=== PATIENT | male | born 1985 | race Caucasian/White ===

== ENCOUNTER → 2023-04-19 07:44 | Outpatient (CLI) | payer OTHER, SELFPAY ==
--- NOTE | ~2023-04-19 | US_ITS ---
EXAMINATION: US abdomen complete DATE: 04/19/2023 08:15 INDICATION: Liver disease TECHNIQUE: Multiple grayscale and Doppler ultrasound images of the abdomen were obtained. COMPARISON: None available FINDINGS: Bowel gas obscures visualization of the pancreas. The visualized portions of the pancreas a re unremarkable. The liver demonstrates increased echogenicity, heterogenous echotexture, and decreas ed through transmission. There are areas of focal fatty sparing near the gallbladder fossa. No surfac e nodularity. Normal hepatopetal flow in the main portal vein. The gallbladder is normal with no abno rmal wall thickening, pericholecystic fluid or stones. The normal common bile duct measures 6 mm. The re was no sonographic Perez sign. The visualized portions of the aorta and inferior vena cava are no rmal. The spleen is normal in appearance and measures 12.6 cm. The right kidney measures 12.2 x 5.2 x 5.1 c m. The left kidney measures 12.1 x 4.4 x 5.3 cm. The kidneys demonstrate normal parenchymal echogenic ity. There is no hydronephrosis. IMPRESSION: 1. Diffuse hepatic steatosis. Reviewed, dictated and finalized at location L. MATIC PAINT SPRAYER OPERATOR
== END ==
PROVIDERS: PCP Emergency Medicine; Visit Provider Emergency Medicine
DX: K76.9 Liver disease, unspecified (principal); K76.0 Fatty (change of) liver, not elsewhere classified
CPT/HCPCS: 76700

== ENCOUNTER 2024-12-25 18:29 | Emergency (ER) | payer OTHER, SELFPAY ==
--- OUTSIDE RECORDS SUMMARY | 2023-06-12 16:26 | XMS_ITS | Continuity of Care Document ---
Author Organization [facility] Address [address] [facility] [place] [address] Phone Care Team Providers Care Customs Examiner Name Role Phone Sammy Bernal MD Unavailable Unavailable Allergies, Adverse Reactions, Alerts Substance Reaction Status Criticality No Known Allergies Active No Inform ation Medications Medication Instructions Dosage Effective Dates (start - stop) Status Comments Crestor 10 mg tablet take 1 tablet by or al route every day 10 MG - Active allopurinol 100 mg tablet take 1 tablet by oral route every day 100 MG - Active Procedures Procedure Date OFFICE/OUTPATIENT VISIT, EST OFFICE/OUTPATIENT VISIT, EST PREV VISIT, EST, AGE 18-39 PREV VISIT, EST, AGE 18-39 PREV VISIT, NEW, AGE 18-39 Advance Directives Directive Yes / No Effective Date File Name No Information Encounters Encounter Description Practice Location Reason(s) For Visit Diagnoses Date Provider Providers Copied on Encounter [facility], [address] [facility] [place], [place], [id number], tel:[phone] [facility] No Information Gabe Christianson. [address] [employer] [facility] [place], [id number] , [place]. tel:[phone] OFFICE/OUTPA TIENT VISIT, EST [facility], [address] [place], [id number], tel:[phone] [facility] Medicine fatty liver1 (chief complaint) platelet1 (chief complaint) HLP (chief complaint) gout1 (chief complaint) Fatty liverThrombocytopen iaMixed hyperlipidemiaGout 0- 3 Gabe Christianson. [address], [place], [place], [id number] , [place]. tel:[phone] OFFICE/OUTPA TIENT VISIT, EST [facility], [address], [place], [place], [id number], [place] tel:[phone] [facility] gout1 (chief complaint) platelet1 (chief complaint) liver1 (chief complaint) HLP (chief complaint) GoutThrombocytopeni aLiver diseaseMixed hyperlipidemia Feb- 3 Gabe Christianson. [address], [place], [place], [address] , [place]. tel:[phone] PREV VISIT, EST, AGE 18-39 [facility], [address], [place], [place], [id number], [place] tel:[phone] [facility] Medicine physical (chief complaint) Encounter for general adult medical examination without abnormal findings 3 Gabe Christianson. [address], [place], [place], [address] , [place]. [phone] PREV VISIT, EST, AGE 18-39 [facility], [address], [place], [place], [address], [place] tel:[phone] [facility] Medicine physical (chief complaint) Encounter for general adult medical examination without abnormal findings 2 Gabe Christianson. [address], [place], [place], [address] , [place]. tel:[phone] PREV VISIT, NEW, AGE 18-39 [facility], [address], [place], [place], [address], [place] tel:[phone] [facility] Medicine physical (chief complaint) Encntr for general adult medical exam w/o abnormal findings 0 Gabe Christianson. [address], [place], [place], [address] , [place]. tel:[phone] Family History Family Member Type Diagnosis Age At Onset Mother Problem (finding) Alive and well Sister Problem (finding) Alive and well Father Problem (finding) unknown Payers Payer name Insurance type Covered libertarian ID Authoriza tion(s) No Information Social History Type Description Quantity Date Captured Comments Alcohol Use Details Unknown Caffeine Use Details Unknown Tobacco Use Status No Information Smoking Status No Information Sex Male Chief Complaint And Reason For Visit No Information Plan Of Treatment Date Type Action Status Referral Ordered: Melly Bolanos -[facility] : Internal Medicine (related to Fatty liver) ordered Referral Referred To: Melly Bolanos [address], [phone] Ordered: Referrals: [facility] Physicians : Internal Medicine. Melly Bolanos. Evaluate and treat ordered Referral Ordered: US EXAM, ABDOM, COMPLETE ordered History Of Present Illness Encounter Date Complaint History Of Prese nt Illness fatty liver1 Pt has diffuse f atty liver. Pt denies any abdominal pain or jaundice. pt does drink alcohol more than socially platelet1 Pt has borderlin e low platelet .pt denies any bruising or bleeding HLP Pt has HLP Pt ta osman viera. Pt denies any myalgia or any other side effects gout1 Pt has history o f gout .Pt takes allopurinol. Pt denies any side effects Pt denies any recent gout attack gout1 Pt has high uric acid Pt has not had any gout for several months Pt does feel stiff joint sometimes. platelet1 Pt has low plate let. Pt denies any bruising or bleeding liver1 Pt has mildly hi gh LFT. Pt denies any abd pain or jaundice Pt denies any bruising HLP Pt has HLP Pt mi s failed diet and exercise. Pt does drinks alcohol. physical Pt needs annual physical. Pt c/o recurrent irritation, mild itching and excessive tearing from right eye for 2-3 weeks .Pt denies any eye pain or vision change. Pt denies any purulent pus drainage Pt denies any left eye issue Pt denies any sinus headache or ear pain or any headache. Pt does wear contact Pt denies any FB in right eye or any eye pain. 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 Pt denies any other complaints. Pt has history of gout .Pt has not had any gout attack for several months. physical Pt needs annual physical Pt c/o non itching red spotty rash both hand and then spreading to brown and mainly to groin area since 5 days ago. Pt denies any drainage Pt denies any itching Pt denies any sick contact. Pt denies any pain. Pt otherwise feels well. Pt denies any recurrent gout attack. his bp is borderline high. Pt denies any chest pian or headache .Pt gained some grupo since two years ago. physical Pt needs annual physical pt has recurrent gout attack for 3 years. Pt had total of 3 attacks but last week he had attack which last longer than usual and seems more painful Pt states that attack is always on left foot near dorsal left foot Pt has redness and hot when he has attack. Pt went to urgent care two days ago and was confirmed for gout and was given naproxen which helped Pt currently denies any pain Pt denies any injury Pt denies any other complaints Instructions Date Instruction Additional Infor juan No Information Assessments Type Assessment Date No Information
--- NOTE | ~2024-12-25 | CT_ITS ---
EXAMINATION: CT chest abdomen pelvis w con DATE: 12/25/2024 20:57 CDT INDICATION: Left lower rib pain. Left upper quadrant tenderness. TECHNIQUE: Computed tomography (CT) of the chest, abdomen, and pelvis was performed with 100 cc Omnipaque 350 intravenous contrast. The dose-length product was 826.30 mGy-cm. Automated exposure control and iterative reconstruction technique were employed. COMPARISON: None FINDINGS: CT chest, abdomen and pelvis: Heart size normal. No significant pleural or pericardial effusion. No significant vascular abnormality. There is acute diverticulitis of the descending colon. No evidence for perforation or abscess. Small umbilical hernia containing fat. Right inguinal hernia containing fat. Normal appendix. No thoracic lymphadenopathy. No significant pleural or pericardial effusion. Heart size normal no pneumothorax. No endobronchial lesions. 3 mm right lower lobe nodule, likely benign. No acute osseous abnormality. There is grade 1 spondylolisthesis at L5-S1 secondary to spondylolysis. Fatty infiltration of the liver. The spleen, pancreas, adrenal glands and kidneys are unremarkable. IMPRESSION: 1. Acute uncomplicated diverticulitis of the descending colon. Reviewed, dictated and finalized at location A.
--- OUTSIDE RECORDS SUMMARY | 2024-12-25 18:31 | XMS_ITS | Clinical Summary ---
Author Organization [facility] Address [address] [place] [address] Care Team Providers Care Home Health Nurse Licensed Practical Name Role Phone Unavailable Primary Care Provider Unavailabl e Immunizations Immunization Administration Dates Next Due Covid-19, Mrna, Lnp-s, Pf, 30 Mcg/0.3 Ml Dose (P fizer) 05/29/2021 Social History Tobacco Use Types Packs/Day Years Used Date Smoking Tobacco: Never Assessed Sex and Gender Information Value Date Recorded Sex Assigned at Not on file Legal Sex Male 12:11 PM NIGHT TIME NANNY Gender Identity Not on file Sexual Orientation Not on file Plan of Treatment Health Maintenance Due Date Last Done Comments Hepatitis C Virus (HCV) Screening 1984 TdaP Immunization 1984 Hepatitis B Immunization (1 of 3 - 19+ 3-dose series) 11/03/2003 Human Papillomavirus (HPV) Immunization (1 - 3-dose SCDM series) 11/03/2011 SARS-COV-2 Immunization ( season) 2024 05/29/2021, 10/03/2020, 09/12/2020 Influenza Immunization (#1) 2025 Respiratory Syncytial Virus (RSV) Immunization (Adult) (1 - 1-dose 75+ series) 11/03/2059 DTaP/Tdap/Td Immunization Discontinued 1989, 03/14/1986, 04/20/1985, Additional history exists Meningococcal Immunization (ACWY) Aged Out No longer eligible based on patient's age to complete this topic Pneumococcal Immunization Combined Aged Out No longer eligible based on patient's age to complete this topic Rotavirus Immunization Aged Out No lo nger eligible based on patient's age to complete this topic
--- OUTSIDE RECORDS SUMMARY | 2024-12-25 18:31 | XMS_ITS | Clinical Summary ---
Author Organization [facility] Address [address] [place] [address] Care Team Providers Care Security Supervisor Name Role Phone Unavailable Primary Care Provider Unavailabl e Social History Tobacco Use Types Packs/Day Years Used Date Smoking Tobacco: Never Assessed Sex and Gender Information Value Date Recorded Sex Assigned at Not on file Legal Sex Male 7:59 AM CDT Gender Identity Not on file Sexual Orientation Not on file Last Filed Vital Signs Vital Sign Reading Time Taken Comments Blood Pressure 138/92 04/22/2016 4:54 PM EXCELLENCE SPECIALIST Pulse 100 04/22/2016 3:28 PM EXCELLENCE SPECIALIST Temperature - - Respiratory Rate - - Oxygen Saturation - - Inhaled Oxygen Concentration - - Weight 92.5 kg (204 lb) 04/22/2016 3:28 PM EXCELLENCE SPECIALIST Height 170.2 cm (5' 7) 04/22/2016 3:28 PM EXCELLENCE SPECIALIST Body Mass Index 31.95 04/22/2016 3:28 PM EXCELLENCE SPECIALIST Plan of Treatment Health Maintenance Due Date Last Done Comments Annual Physical 11/03/1987 Hepatitis C 2002 DTaP, Tdap and Td Vaccines ( 1 - Tdap) 11/03/2003 Hepatitis B Vaccines (1 of 3 - 19+ 3-dose series) 11/03/2003 HPV Vaccines (1 - 3-dose SCD M series) 11/03/2011 COVID-19 Vaccine ( - 2023-2 5 season) 2024 Meningococcal B Vaccine Aged Out No l onger eligible based on patient's age to complete this topic Meningococcal Vaccine Aged Out No tobin jayro eligible based on patient's age to complete this topic Pneumococcal Vaccine: Pediat rics (0 to 5 Years) and At-Risk Patients (6 to 49 Years) Aged Out No longer eligible b ased on patient's age to complete this topic RSV Immunizations Under 20 Months Aged Out No longer eligible based on patient's age to complete this topic
[2024-12-25 18:32] VITALS: BP 158/91; PULSE 102; RESP 20; TEMP 36.6; O2SAT 98
--- NOTE | 2024-12-25 19:21 | ED.GENADULT ---
HPI - General Adult General Chief complaint: Back Pain/Injury Stated complaint: left flank pain Time Seen by Provider: 12/25/24 19:11 History of Present Illness HPI narrative: 39-year-old male present to the emergency department for evaluation for left lower rib pain and left upper quadrant abdominal pain. Patient noticed the pain yesterday after treated to. Patient denies any specific incident of injury but started having increasing pain over the few hours after a jujitsu and patient reports pain is worsened with deep inspiration and with movement. Patient is uncomfortable appearing at time of evaluation. Patient declined medications for pain control. Patient does have previous history of gout but states he has had weight loss and has stop taking his allopurinol. Patient does take a statin. Related Data Allergies Allergy/AdvReac Type Severity Reaction Status Date / Time No Known Allergies Allergy Verified 12/25/24 18:34 Review of Systems Review of Systems: All systems reviewed & are unremarkable except as noted in HPI and below Exam Narrative: APPEARANCE: Well appearing, no pain, no distress, well-nourished. HEAD: normocephalic, atraumatic. EYES: PERRLA/EOMI, conjunctivae clear. NOSE: Normal no drainage EARS:TMS clear with good light reflex. THROAT: Pharynx clear, no exudate. NECK: Supple. No adenopathy, no masses. RESPIRATORY: Airway patent, respirations nonlabored. Clear to auscultation bilaterally, no rales, rhonchi, wheezing. CARDIOVASCULAR: Regular rate and rhythm without murmurs rubs or gallops. ABDOMINAL: Left upper quadrant tenderness to palpation, no left CVA tenderness MUSCULOSKELETAL: Left lower rib tenderness to palpation NEURO: Alert. Cranial nerves II through XII intact. Good gait. Good coordination SKIN: Warm, dry. Normal Color Course Vital Signs Vital signs: Vital Signs Temperature 97.8 F 12/25/24 18:32 Pulse Rate 102 H 12/25/24 18:32 Respiratory Rate 20 12/25/24 18:32 Blood Pressure 158/91 H 12/25/24 18:32 Pulse Oximetry 98 12/25/24 18:32 Temperature 97.8 F 12/25/24 21:20 Pulse Rate 78 12/25/24 21:20 Respiratory Rate 18 12/25/24 21:20 Blood Pressure 132/74 12/25/24 21:20 Pulse Oximetry 99 12/25/24 21:20 Medical Decision Making MDM Narrative Medical decision making narrative: 39-year-old male presents emergency department for evaluation for left upper quad abdominal pain. Patient is afebrile but does have a leukocytosis of 11.5 a hemoglobin of 14. Patient has INR 1.0. No acute abnormalities on the patient's CMP with a negative lactic acid. Lipase was negative. CT with contrast was ordered to evaluate for splenic injury 1st as lung injury. No evidence of splenic injury no evidence of rib fractures or pulmonary contusion, CT was positive for uncomplicated diverticulitis of the descending colon. This does correlate with the patient's symptoms. Patient was started on Augmentin the emergency department. Differential Diagnosis Differential Diagnosis: rib fracture, pneumothorax, pneumonia, colitis, splenic laceration, diverticulitis Vital Signs Vital Signs: Vital Signs Temperature 97.8 F 12/25/24 18:32 Pulse Rate 102 H 12/25/24 18:32 Respiratory Rate 20 12/25/24 18:32 Blood Pressure 158/91 H 12/25/24 18:32 Pulse Oximetry 98 12/25/24 18:32 Temperature 97.8 F 12/25/24 21:20 Pulse Rate 78 12/25/24 21:20 Respiratory Rate 18 12/25/24 21:20 Blood Pressure 132/74 12/25/24 21:20 Pulse Oximetry 99 12/25/24 21:20 Lab Data Lab results reviewed: Yes I reviewed the patient's lab results. 12/25/24 19:42 12/25/24 19:42 Labs: Lab Results 12/25/24 Range/Units 19:42 WBC 11.5 H (4.5-10.0) K/mm3 RBC 4.92 (4.6-6.20) M/mm3 Hgb 14.0 (14.0-18.0) g/dL Hct 42.5 (42.0-52.0) % MCV 86.4 (80-100) fl MCH 28.5 (26-34) pg MCHC 32.9 (32-36) g/dl RDW 13.2 (11.5-14.5) % Plt Count 59 L (150-375) k/mm3 MPV 14.6 H (7.4-10.4) fl Immature Gran % (Auto) 0.7 H (0-0.5) % Neut % (Auto) 82.2 H (45.5-73.1) % Lymph % (Auto) 9.4 L (18.3-44.2) % [place] % (Auto) 7.1 (2.6-8.5) % Eos % (Auto) 0.5 (0-4.4) % Baso % (Auto) 0.1 L (0.2-1.2) % Lymph # (Auto) 1.08 (0.9-3.2) K/mm3 [place] # (Auto) 0.8 H (0.1-0.6) K/mm3 Eos # (Auto) 0.1 (0-0.3) K/mm3 Baso # (Auto) 0.0 (0.0-0.1) K/mm3 Abs Immat Gran (auto) 0.08 H (0.00-0.031) K/mm3 Absolute Neuts (auto) 9.4 H (1.3-6.7) K/mm3 Absolute Nucleated RBC 0.000 (0.0-0.012) K/mm3 Band Neutrophils % Not Reportable Nucleated RBC % 0.0 (0.0-0.2) % Platelet Estimate Decreased (Adequate) % Immature Plt Fraction 23.1 H (0.9-11.2) % Anisocytosis 1+ Tear Drop Cells 1+ Schistocytes None seen PT 13.5 (11.1-14.7) Seconds INR 1.0 APTT 26.5 (22.3-36.8) Seconds Sodium 136 L (137-145) mmol/L Potassium 4.1 (3.4-5.0) mmol/L Chloride 106 (98-107) mmol/L Carbon Dioxide 24 (22-30) mmol/L Anion Gap 6 (4-12) mmol/L BUN 21 H (9-20) mg/dL Creatinine 1.27 (0.7-1.3) mg/dL Estim Creat Clear Calc 77 ml/min Estimated GFR > 60 (59 - ) Glucose 103 (65-110) mg/dL Lactic Acid 0.8 (0.7-2.0) mmol/L Calcium 8.4 (8.4-10.2) mg/dL Total Bilirubin 0.6 (0.2-1.3) mg/dL AST 32 (17-59) U/L ALT 24 (6-50) U/L Alkaline Phosphatase 71 (38-126) U/L Total Protein 7.8 (6.3-8.2) g/dL Albumin 4.2 (3.5-5.1) g/dL Lipase 74 (23-300) U/L Imaging Data Radiologist's impression: Impressions Chest/Abdomen/Pelvis CT 12/25/24 20:56 IMPRESSION: 1. Acute uncomplicated diverticulitis of the descending colon. Discharge Plan Discharge Clinical Impression: Abdominal pain, Diverticulitis Patient Disposition: Home Condition: Stable Instructions: Antibiotic Form, Diverticulitis (ED), Abdominal Pain (ED) Additional Instructions: antibiotic as directed until completed. Have close follow-up with your primary care physician. Patient will have close follow-up with GI. If you have any worsening symptoms then please call or return to the emergency department. Patient Language: Yoruba Prescriptions: New amoxicillin-pot clavulanate 875-125 mg tablet 1 tablet PO Q12H 7 Days Qty: 14 0RF Follow-up/Referrals: PHYSICIAN NOT ON STAFF,NONSTAFF [Primary Care Provider] Rickey Titus MD [Physician, Gastroenterology]
[2024-12-25 19:54] LABS: Hematocrit 42.5 % (42.0-52.0); Hemoglobin 14.0 g/dL (14.0-18.0); Immature Granulocyte Percent A 0.7 % (0-0.5); Immature Platelet Fraction Pct 23.1 % (0.9-11.2); Lymphocytes Absolute Auto 1.08 K/mm3 (0.9-3.2); Mean Corpuscular HGB Conc 32.9 g/dl (32-36); Mean Corpuscular Hemoglobin 28.5 pg (26-34); Mean Corpuscular Volume 86.4 fl (80-100); Nucleated Red Blood Cells Absolute Auto 0.000 K/mm3 (0.0-0.012); Nucleated Red Blood Cells Perc 0.0 % (0.0-0.2); Platelet Count Result 59 k/mm3 (150-375); Red Blood Count 4.92 M/mm3 (4.6-6.20); White Blood Count 11.5 K/mm3 (4.5-10.0)
[2024-12-25 19:58] LABS: Alanine Aminotransferase 24 U/L (6-50); Albumin Level 4.2 g/dL (3.5-5.1); Alkaline Phosphatase 71 U/L (38-126); Anion Gap 6 mmol/L (4-12); Aspartate Amino Transferase 32 U/L (17-59); Bilirubin,Total 0.6 mg/dL (0.2-1.3); Blood Urea Nitrogen 21 mg/dL (9-20); Calcium 8.4 mg/dL (8.4-10.2); Carbon Dioxide 24 mmol/L (22-30); Chloride 106 mmol/L (98-107); Estimated CRCL calculation 77 ml/min; Estimated Glomerular Filt Rate > 60; Glucose 103 mg/dL (65-110); Lipase 74 U/L (23-300); Potassium 4.1 mmol/L (3.4-5.0); Sodium 136 mmol/L (137-145); Total Protein 7.8 g/dL (6.3-8.2)
[2024-12-25 20:09] LABS: INR 1.0; Partial Thromboplastin Time 26.5 Seconds (22.3-36.8); Prothrombin Time 13.5 Seconds (11.1-14.7)
[2024-12-25 20:15] LABS: Anisocytosis 1+; Schistocytes None Seen; Tear Drop Cells 1+
[2024-12-25 21:20] VITALS: BP 132/74; PULSE 78; RESP 18; TEMP 36.6; O2SAT 99
== END 2024-12-25 21:21 | disposition home or self-care (01) ==
PROVIDERS: Emergency Provider Emergency Medicine
DX: R10.9 Unspecified abdominal pain (principal); K57.32 Diverticulitis of large intestine without perforation or abscess without bleeding
CPT/HCPCS: 36415; 71260; 74177; 80053; 83605; 83690; 85025; 85055; 85610; 85730; 99284; A9270; Q9967